=== PATIENT | male | born 1940 ===

== ENCOUNTER 2023-05-20 14:13 | Emergency (ER) | payer OTHER, SELFPAY ==
[2023-05-20 14:25] VITALS: BP 184/82
[2023-05-20 14:45] LABS: % Basophils 0.6 % (0-2); % Eosinophils 1.7 % (0-6); % Immature Granulocytes 0.6 % (0-0.5); % Lymphocytes 20.7 % (20.5-51.1); % Monocytes 10.9 % (1.7-9.3); % Neutrophils 65.5 % (42.2-75.2); Absolute Eosinophils 0.1 10^3/uL (0-0.7); Absolute Lymphocytes 1.5 10^3/uL (1.2-3.4); Absolute Monocytes 0.8 10^3/uL (0.1-0.6); Absolute Neutrophils 4.6 10^3/uL (1.4-6.5); Hematocrit 31.7 % (39.0-52.0); Hemoglobin 10.7 g/dL (13.0-18.0); Mean Corp Hgb Conc. 33.8 g/dL (33.0-37.0); Mean Corpuscular Hgb 31.5 pg (27.0-31.0); Mean Corpuscular Volume 93.2 fL (80.0-94.0); Mean Platelet Volume 9.7 fL (7.4-10.4); Nucleated Red Blood Cells % 0 % (-); Platelet Count 287 10^3/uL (130-400); Red Cell Dist. Width 12.5 % (11.5-14.5); Urine Albumin Trace (Neg - Trace); Urine Bilirubin Negative (Negative); Urine Character Clear (Clear); Urine Color Yellow; Urine Glucose Negative (Negative); Urine Ketone Negative (Negative); Urine Leukocyte Negative (Negative); Urine Nitrite Negative (Negative); Urine Occult Blood 1+ (Negative); Urine Specific Gravity 1.015 (<1.030); Urine Urobilinogen Negative (Neg - 1+)
[2023-05-20 14:57] LABS: ALT (SGPT) 18 U/L (0-50); AST (SGOT) 33 U/L (17-59); Albumin 4.4 g/dl (3.5-5.0); Alkaline Phosphatase 69 U/L (38-126); Blood Urea Nitrogen 32 mg/dl (9-20); Calcium 9.7 mg/dl (8.4-10.2); Carbon Dioxide 29 mmol/L (22-30); Chloride 103 mmol/L (98-107); Glucose 117 mg/dl (70-99); Lipase 37 U/L (23-300); Potassium 4.9 mmol/L (3.5-5.1); Sodium 136 mmol/L (135-145); Total Bilirubin 0.5 mg/dl (0.2-1.3); Total Protein 6.9 g/dl (6.3-8.2); eGFR > 60.00
[2023-05-20 15:32] LABS: Urine Squamous Cell 0-2 /LPF (Few); Urine White Cell None Seen /HPF (0-5)
--- NOTE | 2023-05-20 17:57 | ED.GENMED ---
History of Present Illness
General
Chief Complaint: Abdominal Pain
Source: patient
Exam Limitations: none
Time Seen by Provider: 05/20/23 16:14
Nursing documentation reviewed up to this point in time: agreed with
Travel History
Have you had any contact with someone who has COVID-19?: No
Do you have any symptoms of coronavirus? Fever > 100 degrees, chills, cough, shortness of breath, sore throat, loss of taste or smell, muscle aches, or headache?: No
History of Present Illness
History of Present Illness:
Patient presents to ED secondary to worsening left inguinal swelling with pain over the past 1 week. Patient states that he has had left inguinal hernia repaired 4 years ago. Shortly after the procedure, his swelling had returned. Patient was
subsequently seen by his surgeon for follow-up. He was told that his mesh may have migrated. Since then, unfortunately, his surgeon has retired. Over the past few months, patient also has been experiencing difficulty with bowel movements, and has
been straining when he has bowel movements. In addition, whenever he coughs, he noticed that his swelling is worse. Denies vomiting. Denies trauma. Denies fever. Denies recent change in medications or diet. Denies loss of appetite. Patient
has also recently noted increased scrotal swelling as well.
Past History
Past History
ED Past Medical History: HTN and Hypercholesterolemia
ED Past Surgical History: Other (hernia)
Social History
Tobacco: Non-smoker
Alcohol: None
Drug: None
Review of Systems
Review of Systems
Allergies reviewed?: Yes
All Other Systems: ROS reviewed and negative except as documented in HPI and ROS
Constitutional: Reports no symptoms; Denies fever
ABD/GI: Reports abdominal pain and constipated
: Reports other (Scrotal swelling)
Musculoskeletal: Reports no symptoms
Skin: Reports no symptoms
Neurological: Reports no symptoms
Phy Exam
Physical Exam
Physical Exam:
Physical Exam
General: mild distress, not acutely ill. afebrile
Head: nc/at. eomi
Neck: supple. no meningeal signs.
Abdomen: normal bowel sounds. swelling/tenderness noted over left groin/suprapubic region without discoloration.
Neuro: alert and oriented. no focal neurological deficits
Skin: no rash
Psychiatric: well kept. interactive and cooperative
Extremities: no edema. no calf tenderness.
Course
Orders/Labs/Results
Orders:
Orders
05/20/23 14:27
IV Insert/Care/Rem.- Treatment PRN
05/20/23 14:35
Complete Blood Count/With Diff Urgent
Urinalysis Reflex To Culture Urgent
Date Specimen was Collected: 05/20/23
Time Specimen was Collected: 14:27
Urine Microscopic Reflex Cult Urgent
05/20/23 14:36
Comprehensive Metabolic Panel Urgent
Lipase Urgent
Abnormal Lab Results
05/20/23 05/20/23
14:35 14:36
RBC 3.40 L 10^6/uL
(4.70-6.10)
Hgb 10.7 L g/dL
(13.0-18.0)
Hct 31.7 L %
(39.0-52.0)
MCH 31.5 H pg
(27.0-31.0)
Absolute Monos (auto) 0.8 H 10^3/uL
(0.1-0.6)
Immature Gran % 0.6 H %
(0-0.5)
Monocytes % 10.9 H %
(1.7-9.3)
BUN 32 H mg/dl
(9-20)
Glucose 117 H mg/dl
(70-99)
Ur Occult Blood Reflex 1+ A
(Negative)
Urine RBC 3-6 A /HPF
(0-2)
05/20/23 14:35
05/20/23 14:36
Vital Signs
Initial and Last Documented VS:
Initial Vital Signs
Temp Pulse Resp BP Pulse Ox
99.0 F 60 14 184/82 96
05/20/23 14:25 05/20/23 14:25 05/20/23 14:25 05/20/23 14:25 05/20/23 14:25
Last Documented Vital Signs
Temp Pulse Resp BP Pulse Ox
99.0 F 63 14 152/77 93
05/20/23 14:25 05/20/23 16:44 05/20/23 14:25 05/20/23 18:26 05/20/23 16:44
MDM/Problems Addressed
MDM/Problems Addressed:
Repeat abdominal exam, remains soft with mild tenderness to palpation, and reduced with gentle pressure. Exam inconsistent with incarcerated hernia. Patient remains afebrile, hemodynamically stable, and nontoxic-appearing. Discussed with
Jae, general surgery. Patient's presentation likely chronic in nature, which may have worsened. Will follow-up with the patient in the office next week for reevaluation. Patient advised to return to ED with worsening symptoms, i.e.
fever/worsening pain/vomiting. In the meantime, advised refraining from straining during bowel movements, as it may worsen his symptoms. Patient and son expressed understanding at time of discharge.
*Critical Care Note
Total Time (30-74mins, 75-104mins- exclusive of procedures): Not Applicable
ED Attending Note
-
Portions of this chart may have been created with voice recognition software.� Occasional wrong word or��sound alike� substitutions may have occurred due to the inherent limitations of voice recognition software.
Discharge Plan
Departure
Patient Disposition: Home (Routine Discharge)
Date of Disposition: 05/20/23
Time of Disposition: 18:57
Patient with high blood pressure during this ER visit?: Yes
Condition: Good
Discharge Problem:
Inguinal hernia
Instructions: Groin Hernia (DC)
Referrals:
Michael Johnson DO [Family Provider] -
Pop Rowe MD [Active] -
Activity Restrictions/Additional Instructions:
As discussed, please follow-up with referred general surgeon for further evaluation and treatment. Please return to ED with worsening symptoms, i.e. fever/worsening pain/vomiting.
Interventions
Interventions:
*Risk Screen - Suicide Last Done: 05/20/23 14:25
*General Assessment Last Done: 05/20/23 14:25
*Neglect/Abuse Screening Last Done: 05/20/23 14:25
ED- Fall Risk Assessment Last Done: 05/20/23 16:44
*ED COVID-19 Vaccine History Last Done: 05/20/23 14:25
*Nursing Disposition Last Done: 05/20/23 19:31
QI-Dypnui-Yehcefpenj Assessment Last Done: 05/20/23 16:44
Discharge Date and Time
Discharge Date/Time: 05/20/23 19:15
Print Language: SPANISH
[2023-05-20 18:26] VITALS: BP 152/77
== END 2023-05-20 19:15 | disposition home or self-care (01) ==
LOC: EMR 14:13
PROVIDERS: EMERGENCY PHYSICIAN Emergency Medicine; FAMILY PHYSICIAN Family Medicine
DX: K40.90 Unilateral inguinal hernia, without obstruction or gangrene, not specified as recurrent (principal); I10 Essential (primary) hypertension
CPT/HCPCS: 99283; 80053; 81003; 81015; 83690; 85025

== ENCOUNTER → 2023-06-02 10:14 | Outpatient (REF) | payer OTHER, SELFPAY | LOC: RAD 10:14 | PROVIDERS: ATTENDING PHYSICIAN Surgery; FAMILY PHYSICIAN Family Medicine | DX: K40.90 Unilateral inguinal hernia, without obstruction or gangrene, not specified as recurrent (principal) | CPT/HCPCS: 74177; Q9967 ==

== ENCOUNTER → 2023-06-25 06:18 | Day surgery (SDC) | payer OTHER, SELFPAY ==
[2023-06-16 13:47] VITALS: BMI 31.1
[2023-06-25] VITALS (11 sets, daily range): BP systolic 114–161; BP diastolic 50–66; BMI 31.1
[2023-06-25] MEDS: TYLENOL 1000 MG PO (09:06)
[2023-06-25] MEDS: NORMOSOL-R 1000 IV (09:10)
--- NOTE | 2023-06-25 12:38 | W.IMMPOSTOP ---
Surgical Immed Post Op Note
-
Primary Surgeon: Jae
Assisting: Jeanne KELLEY
Pre-op Diagnosis: Recurrent incarcerated left inguinal hernia
Post-op Diagnosis: Same
Procedure Performed: Robot assisted laparoscopic repair of recurrent incarcerated left inguinal hernia
Anesthesia Type: GETA
Specimen / Cultures: None
Estimated Blood Loss: 15cc
Complications: None immediate
Operative Findings: Vary large incarcerated hernia involving sigmoid colon; old mesh partially rolled up inferiorly allowing recurrence under the bottom edge; old mesh partly incorporated into the flap; Vas deferens sacrificed.
XL MID 3D max
--- NOTE | 2023-06-25 12:41 | OR.RPT ---
Operative Report
Operative Report
Primary Surgeon: Jae
Assisting: Jeanne KELLEY
Pre-op Diagnosis: Recurrent incarcerated left inguinal hernia
Post-op Diagnosis: Same
Procedure Performed: Robot assisted laparoscopic repair of recurrent incarcerated left inguinal hernia
Anesthesia Type: GETA
Specimen / Cultures: None
Estimated Blood Loss: 15cc
Complications: None immediate
Operative Findings: Vary large incarcerated hernia involving sigmoid colon; old mesh partially rolled up inferiorly allowing recurrence under the bottom edge; old mesh partly incorporated into the flap; Vas deferens sacrificed.
XL MID 3D max
Date of surgery: 06/25/23
Indications:� This 83M developed symptomatic recurrent large inguinoscrotal left inguinal hernia. Robot assisted laparoscopic repair was planned.
Description of procedure:� The patient was taken to the operating room and positioned into supine position. The patient�s abdomen was prepped and draped in standard sterile fashion. A time-out was completed verifying correct patient, procedure,
site, positioning, and implants and special equipment prior to beginning this procedure.� The hernia was manually reduced after induction. A stab incision was made in the left upper quadrant, a Veress needle was inserted and proper position was
confirmed by aspiration and saline drop test. Following this, pneumoperitoneum was created with insufflation of carbon dioxide to 12 mmHg. Then a 8mm robotic trocar was inserted above and to the left of the umbilicus. A laparoscope was inserted and
the area of initial trocar entry and Veress needle placement were both inspected and no injuries were found. Two 8mm trocars were then placed lateral to the rectus sheath under direct visualization.
Both inguinal regions were inspected and the median umbilical ligament, medial umbilical ligament, and lateral umbilical fold were identified. Attention was turned to the left groin. Attempts were made to reduce the colon with gentle traction and
external pressure unsuccessfully. The peritoneum was incised transversely above the defect and a flap was developed in the caudad direction. Godwin�s ligament was identified ultimately dissected to its junction with the iliac vein and the space of
Retzius was developed bluntly.� In this area the old mesh was present, rolled into a tube inferiorly but flat and integrated well around Godwin's. The soft tissue was gently teased away from the old mesh with judicious cautery and blunt sweeps.
Above the defect the mesh was well integrated into the peritoneum and came down with the flap, the medial portion of the mesh was transected around the iliacs to open up the space for the new mesh. The dissection was continued inferiorly to the
iliopubic tract, with care taken to avoid injury to the femoral branch of the genitofemoral nerve and the lateral femoral cutaneous nerve. The cord structures were parietalized.
The sigmoid colon was then completely reduced from the indirect space revealing a sliding type recurrence. The canal was inspected and no cord lipoma was identified. The direct and femoral spaces were inspected, no defects were identified.
Extra large left MID 3D max mesh was passed through a trocar. The mesh was placed into the preperitoneal space and moved into position to lay flat and completely cover the direct, indirect, and femoral spaces with overlap beyond the midline. The
mesh was secured into place using 2-0 vicryl suture to the old mesh at Godwin�s ligament medially and laterally. Care was taken to avoid the inferolateral triangles containing the iliac vessels and genital nerves.
The peritoneal flap was closed over the mesh and secured with 2-0 monocryl stratafix suture in similar positions of safety. A 14g angiocath was used to decompress the preperitoneal space revealing good seal and all mesh in good position without
folding or curling. After ensuring adequate hemostasis, the trocars were removed and the pneumoperitoneum allowed to escape. The colon was inspected and no injuries were identified. The trocar incisions were closed at the skin level using 4-0
monocryl and topical skin adhesive. All counts were correct and the patient tolerated the procedure well and was taken to the postanesthesia care unit in stable condition.
The assistance of Jeanne KELLEY was required due to the complexity of the procedure. During the procedure Jeanne KELLEY assisted with retraction, resection, and closure of the wound.
== END | disposition home or self-care (01) ==
LOC: SDS 06:18
PROVIDERS: ATTENDING PHYSICIAN Surgery; FAMILY PHYSICIAN Family Medicine
PROC: 8E0W4CZ Robotic Assisted Procedure of Trunk Region, Percutaneous Endoscopic Approach (ICD-10-PCS; 2023-06-25)
PROC: 0YU64JZ Supplement Left Inguinal Region with Synthetic Substitute, Percutaneous Endoscopic Approach (ICD-10-PCS; 2023-06-25)
DX: K40.91 Unilateral inguinal hernia, without obstruction or gangrene, recurrent (principal); I10 Essential (primary) hypertension
CPT/HCPCS: 49651; 36415; 93005; C1781

== ENCOUNTER → 2023-10-28 11:21 | Outpatient (REF) | payer OTHER, SELFPAY | LOC: RAD 11:21 | PROVIDERS: ATTENDING PHYSICIAN Surgery; FAMILY PHYSICIAN Family Medicine | DX: Z09 Encounter for follow-up examination after completed treatment for conditions other than malignant neoplasm (principal) | CPT/HCPCS: 74177; Q9967 ==